=== PATIENT | male | born 1960 | race Caucasian/White ===

== ENCOUNTER 2022-09-30 08:31 | Day surgery (SDC) | payer OTHER, SELFPAY ==
[2022-09-23 07:48] VITALS: BMI 27.9
--- NOTE | 2022-09-27 16:19 | PM.HPGS ---
History of Present Illness History of Present Illness Consent: Risks, benefits, and alternatives have been discussed and questions answered. Patient agrees to proceed with procedure. Chief complaint: Neoplasm Screening and History of Polyps Narrative: Donis Charles is a 62 year old male Referred for colon cancer screening. He had a serrated adenoma removed when he had colonoscopy 8 years ago. Review of Systems Review of Systems: All systems reviewed & are unremarkable except as noted in HPI and below PMFSH Past Medical History Medical History Bronchitis Cervicalgia Hyperlipidemia Polyp of colon Strain of fascia of neck Family History Family History Father Hypertension Hyperlipemia Mother Aneurysm Social History Social History Smoking status: Never smoker (uses smokeless tobacco) Smokeless tobacco user: chewing tobacco Alcohol intake: never Drinks per week: 6 Alcohol use details: have not drank any beer in 4 months. Substance use: never Substance use type: does not use Lack of Transportation: No Lack of Food: Never True Current Housing: I Have Housing Concerned About Future Housing: No Difficulty Paying Gas/Electric Bills: No Difficulty Paying for Meds: No Currently Unemployed: No Education: Trade/Vocational Certificate Difficulty w/ Childcare or Family Care: No Living arrangements: with family Occupation/Education: occupation Gender identity (if verbalized by the patient): Male Sexual Orientation (if Verbalized by the Patient): Straight or Heterosexual Spiritual care concerns: No Agree to blood products: Yes Meds Home Medications and Allergies Home Medications Medication Instructions Recorded Confirmed Type atorvastatin 40 mg tablet 40 mg PO DAILY #90 tabs 08/06/22 09/30/22 Rx Allergies Allergy/AdvReac Type Severity Reaction Status Date / Time No Known Allergies Allergy Unknown Verified 09/30/22 09:19 Exam Const: General: alert Orientation/consciousness: patient oriented x3 Resp: Auscultation: clear to auscultation bilaterally Cardio: Rhythm: regular rhythm GI: GI Palp: Yes Soft to palpation and No Tenderness to palpation present (GI) Neuro: General: patient oriented x3 Assessment and Plan Assessment and plan (1) Colon cancer screening: Code(s): Z12.11 - Encounter for screening for malignant neoplasm of colon Status: Acute Assessment and Plan: Colonoscopy with possible biopsy or polypectomy or cautery or injection of substances.
--- NOTE | 2022-09-30 07:44 | P.PNAN_ITS ---
Anes - Initial Pre Proc Eval Procedure: Operation Date: 09/30/22 10:30 Proposed Procedures p Screening Colonoscopy - Ruben Garnett MD Date/Time: 09/30/22 07:44 Surgeon: Ruben Garnett MD Pre Op Diagnosis: Neoplasm Screening and History of Polyps Patient Data Age: 62 Gender: M Height: 1.7 m Weight: 81 kg Allergies Allergy/AdvReac Type Severity Reaction Status Date / Time No Known Allergies Allergy Unknown Verified 09/30/22 09:19 Home Medications Medication Instructions Recorded Confirmed Type atorvastatin 40 mg tablet 40 mg PO DAILY #90 tabs 08/06/22 09/30/22 Rx Patient hx anesthesia problems: none Family hx anesthesia problems: none Results Review: All pre-operative results and documents have been reviewed as part of the pre- operative evaluation. [facility] Past Medical History Medical History (Updated 09/30/22 @ 07:44 by Fausto Justin DO) Bronchitis Cervicalgia Hyperlipidemia Polyp of colon Strain of fascia of neck Family History Family History Father Hypertension Hyperlipemia Mother Aneurysm Social History Social History (Updated 08/06/22 @ 09:15 by Gabby Guevara MA) Smoking status: Never smoker (uses smokeless tobacco) Smokeless tobacco user: chewing tobacco Alcohol intake: never Drinks per week: 6 Alcohol use details: have not drank any beer in 4 months. Substance use: never Substance use type: does not use Lack of Transportation: No Lack of Food: Never True Current Housing: I Have Housing Concerned About Future Housing: No Difficulty Paying Gas/Electric Bills: No Difficulty Paying for Meds: No Currently Unemployed: No Education: Trade/Vocational Certificate Difficulty w/ Childcare or Family Care: No Living arrangements: with family Occupation/Education: occupation Gender identity (if verbalized by the patient): Male Sexual Orientation (if Verbalized by the Patient): Straight or Heterosexual Spiritual care concerns: No Agree to blood products: Yes Anes - Eval Final PreProcedure Day of Procedure 09/30/22 07:44 Patient weight: overweight Heart: regular rate and rhythm Lungs: clear to auscultation Airway: Mallampati scale class II Neurological: alert and oriented Last oral intake: >/= 8 hours ASA classification: II Emergent: no Anesthetic plan: proceed Anesthesia type and monitoring: general GIVS and standard monitoring Results Review: All pre-operative results and documents have been reviewed as part of the pre- operative evaluation. Informed Consent: The patient's anesthetic plan and its attendant risks and benefits were discussed with the patient/family/POA. Questions were solicited and answers provided to the satisfaction of the patient/family/POA.
[2022-09-30 09:22] VITALS: BP 128/77; PULSE 86; RESP 20; TEMP 36.9; O2SAT 100
[2022-09-30] MEDS: LACTATED RINGERS 1,000 ML 150 ML IV CONT (09:32)
[2022-09-30 10:36] VITALS: BP 98/68; PULSE 65; RESP 18; O2SAT 99
[2022-09-30 10:46] VITALS: BP 112/82; PULSE 63; RESP 17; O2SAT 100
[2022-09-30 10:56] VITALS: BP 128/78; PULSE 61; RESP 17; O2SAT 100
--- NOTE | 2022-09-30 12:06 | WPDANESPN ---
Anes - Prog Note Post-Op Date/Time: 09/30/22 12:06 Cardiovascular status: normal Respiratory status: normal Airway patency: baseline Mental status: baseline Post-Op hydration status: normal Vital Signs: Last Vital Signs Temp 36.9 C 09/30/22 09:22 Pulse 61 09/30/22 10:56 Resp 17 09/30/22 10:56 BP 128/78 09/30/22 10:56 Pulse Ox 100 09/30/22 10:56 O2 Del Method Room Air 09/30/22 10:56 Pain Score (VAS): 0 I/O: Intake & Output 09/29/22 09/30/22 09/30/22 23:59 07:59 15:59 Intake Total 400 Balance 400 Post-procedural complaints: none Patient Feedback: Patient satisfied with anesthetic care. Other Findings: Patient vital signs back to baseline. Patient denies nausea and vomiting. Patient's pain under control. Patient OK for discharge.
== END 2022-09-30 11:15 | disposition home or self-care (01) ==
PROVIDERS: PCP Family Medicine; Visit Provider Internal Medicine Gastroenterology
PROC: 0DJD8ZZ Inspection of Lower Intestinal Tract, Via Natural or Artificial Opening Endoscopic (ICD-10-PCS; CPT 45378; principal; 2022-09-30 10:30)
DX: Z12.11 Encounter for screening for malignant neoplasm of colon (principal)
CPT/HCPCS: 45378

== ENCOUNTER 2024-11-25 16:05 | Emergency (ER) | payer OTHER, SELFPAY ==
[2024-11-25 16:18] VITALS: BP 151/86; PULSE 80; RESP 16; TEMP 37.1; O2SAT 99
--- NOTE | 2024-11-25 16:27 | ED_ITS ---
HPI - Male Genitourinary General Chief complaint: Urogenital-Male Stated complaint: BLOOD IN URINE/BACK PAIN Time Seen by Provider: 11/25/24 16:26 Source: patient Mode of arrival: ambulatory Limitations: no limitations History of Present Illness HPI Narrative: Patient presents to clinic for right flank pain and blood in his urine since 1130am. Currently rating his pain at a 6/10. He has not been taking any [id number] medications. Related Data Allergies Allergy/AdvReac Type Severity Reaction Status Date / Time No Known Allergies Allergy Unknown Verified 11/25/24 17:33 Review of Systems Review of Systems: CONSTITUTIONAL: Denies body aches, fever, chills, or sweats. EYES: Denies visual changes, redness, or discharge. ENT: Denies rhinorrhea, congestion, sore throat, or otalgia. CARDIOVASCULAR: Denies chest pain, palpitations, or edema. RESPIRATORY: Denies cough or dyspnea. GASTROINTESTINAL: Denies abdominal pain, nausea, vomiting, or diarrhea. GENITOURINARY: Reports blood in his urine. SKIN: Denies rash, itching, or wounds. MUSCULOSKELETAL: Denies back pain, joint pain, or myalgia. Reports Right flank pain. NEUROLOGIC: Denies headache, numbness, tingling, or weakness. PSYCH: ?Denies depression or anxiety. All systems reviewed & are unremarkable except as noted in HPI and below PMFSH Past Medical History Medical History Hyperlipidemia Bronchitis Cervicalgia Polyp of colon Strain of fascia of neck Family History Family History Father Hypertension Hyperlipemia Mother Aneurysm Social History Social History Smoking status: Never smoker (uses smokeless tobacco) Smokeless tobacco user: chewing tobacco Alcohol intake: never Drinks per week: 6 Alcohol use details: have not drank any beer in 4 months. Substance use: never Substance use type: does not use Lack of Transportation: No Lack of Food: Never True Current Housing: I Have Housing Concerned About Future Housing: No Difficulty Paying Gas/Electric Bills: No Difficulty Paying for Meds: No Currently Unemployed: No Education: Trade/Vocational Certificate Difficulty w/ Childcare or Family Care: No Living arrangements: with family Occupation/Education: occupation Gender identity (if verbalized by the patient): Male Sexual Orientation (if Verbalized by the Patient): Straight or Heterosexual Spiritual care concerns: No Agree to blood products: Yes Comments At time of signature, I have reviewed and agree with nursing past medical, surgical, social and family history unless otherwise noted. Please see nursing chart for further information. There is no relevant family history pertinent to the presenting complaint. Exam Narrative: GENERAL: Well-appearing, well-nourished, and in no acute distress. HEAD: Normocephalic, atraumatic. EYES: EOMI. ?No redness or drainage. Conjunctivae normal. ENT: Mucous membranes pink and moist. ?No rhinorrhea. ?TMs normal bilaterally. ?Throat normal. Uvula midline. NECK: Normal AROM. ?Supple. ?No lymphadenopathy. CHEST: ?No respiratory distress. Clear to auscultation. HEART: Regular rate and rhythm. No murmur appreciated. Normal peripheral pulses. ABDOMEN: Soft, nontender, nondistended, normal active bowel sounds. MUSCULOSKELETAL: ?Right CVA tenderness noted. EXTREMITIES: Normal range of motion. No edema. SKIN: Warm, dry, no rash. Capillary refill normal. ?Normal skin turgor. NEURO: No focal deficits. Alert and oriented x3. Gait steady. PSYCH: ?Normal affect. ?No signs of depression or anxiety. Course Course Level of Care: Express Care Visit Vital Signs Vital signs: Vital Signs Temperature 98.8 F 11/25/24 16:18 Pulse Rate 80 11/25/24 16:18 Respiratory Rate 16 11/25/24 16:18 Blood Pressure 151/86 H 11/25/24 16:18 Pulse Oximetry 99 11/25/24 16:18 Oxygen Delivery Room Air 11/25/24 16:18 Temperature 98.8 F 11/25/24 16:18 Pulse Rate 80 11/25/24 16:18 Respiratory Rate 16 11/25/24 16:18 Blood Pressure 151/86 H 11/25/24 16:18 Pulse Oximetry 99 11/25/24 16:18 Oxygen Delivery Room Air 11/25/24 16:18 Reviewed Transfer Transfered to: Rick Transfer rationale: Right flank pain, blood in urine. Accepting physician: Franchesca Tillman APRN Transfer comments: Pt is agreeable to transfer. Requests transfer to [facility] via private vehicle. Risks of transportation reviewed with pt including injury, worsening of condition and . Report called to [facility], spoke with Franchesca Tillman APRN, accepting physician. Pt is in stable condition at time of transfer. Advised to remain NPO and go directly to the hospital. MDM - Male Genitourinary MDM Narrative Medical decision making narrative: Discussed physical exam findings. Advised patient to transfer to ER for further evaluation of hematuria and flank pain. Patient agreeable to transfer. Report called to Franchesca Tillman APRN. Differential Diagnosis Differential diagnosis: Likely urinary tract infection and other (mass, kidney stone, pyelonephritis, zoster. ) Lab Data Labs: Lab Results 11/25/24 Range/Units 16:29 POC Urine Color Yellow POC Urine Clarity Clear POC Urine pH 5.5 POC Ur Specif [place] 1.005 POC Urine Protein Negative (Negative) POC Ur Glucose (UA) Negative (Negative) POC Urine Ketones Negative (Negative) POC Urine Blood 3+ (Negative) POC Urine Nitrite Negative (Negative) POC Urine Bilirubin Negative (Negative) POC Urine Urobilinogen 0.2 POC U Leukocyte Esteras Negative (Negative) Critical Care Time Critical Care Time Critical Care Time: No Discharge Plan Discharge Clinical Impression: Acute right flank pain Patient Disposition: Acute Care Hospital Condition: Stable Patient Language: Bulgarian Prescriptions: No Action amoxicillin 500 mg capsule 500 mg PO Q8H Qty: 21 1RF metformin [Glucophage XR] 500 mg tablet extended release 24 hr 500 mg PO QPM Qty: 90 3RF Rx Instructions: take with supper atorvastatin 40 mg tablet 40 mg PO DAILY Qty: 90 1RF Follow-up/Referrals: Miquel Schuler MD [Primary Care Provider] - Time of Disposition: 16:56
[2024-11-25 16:32] LABS: EDUAAPPEAR Clear; EDUABILI Negative (Negative); EDUABLOOD 3+ (Negative); EDUACOLOR1 Yellow; EDUAGLUCOSE Negative (Negative); EDUAKETONE Negative (Negative); EDUALEUKO Negative (Negative); EDUANITRATE Negative (Negative); EDUAPH 5.5; EDUAPROTEIN Negative (Negative); EDUASPGRAVITY 1.005; EDUAUROBILI 0.2
== END 2024-11-25 16:58 | disposition short-term general hospital (02) ==
PROVIDERS: PCP Family Medicine
DX: R10.9 Unspecified abdominal pain (principal); E78.5 Hyperlipidemia, unspecified
CPT/HCPCS: 81003; 99212; G0463

== ENCOUNTER 2024-11-25 17:23 | Observation (INO) | payer OTHER, SELFPAY ==
--- NOTE | ~2024-11-25 | CT_ITS ---
CLINICAL INDICATION: Right flank pain COMPARISON: None. TECHNIQUE: Multiple contiguous axial images of the abdomen and pelvis were performed without the admi nistration of intravenous contrast The dose-length product (DLP) was 273.27 mGy-cm. Automated exposure control and iterative reconstruction technique were employed. FINDINGS/OBSERVATIONS: Visualized lower thorax: The bilateral lung bases are clear. The heart is of normal size, without pericardial effusion. Small hiatal hernia is present. Liver: The liver demonstrates homogeneous attenuation and is not enlarged. Gallbladder and biliary system: The gallbladder is only minimally distended, and otherwise unremarkable. Pancreas: Limited evaluation of the pancreas secondary to the lack of intravenous contrast. Spleen: The spleen demonstrates homogeneous attenuation and is not enlarged. Kidneys: The bilateral kidneys are unremarkable, without hydronephrosis or renal calculi. Adrenal glands: Unremarkable. Gastrointestinal tract: Colonic diverticulosis without surrounding inflammatory change. Appendix: The appendix is fluid-filled and dilated measuring 11.3 mm in caliber with surrounding inflammatory c hange, findings consistent with acute appendicitis. These findings are best visualized on axial serie s, images 114 through 138. Vasculature: Trace calcified atherosclerotic disease. . Lymph nodes: No pathologically enlarged or morphologically suspicious lymph nodes within the retroperitoneum or at the root of the mesentery. Sunshine infiltration of the root of the mesentery, a nonspecific finding. Pelvic structures: The bladder is significantly distended, and otherwise unremarkable. The prostate gland is not enlarged. Body wall and musculoskeletal: Small fat-containing umbilical hernia. Age-appropriate degenerative disease within the lumbosacral spine. IMPRESSION: Acute appendicitis, as detailed above. Reviewed, dictated and finalized at location A.
[2024-11-25 17:27] VITALS: BP 153/84; PULSE 72; RESP 14; TEMP 36.9; O2SAT 99
[2024-11-25 17:45] LABS: Basophils Percent Auto 0.4 % (0.2-1.2); Eosinophils Absolute Auto 0.1 K/mm3 (0-0.3); Eosinophils Percent Auto 0.8 % (0-4.4); Hematocrit 44.1 % (42.0-52.0); Hemoglobin 14.5 g/dL (14.0-18.0); Immature Granulocyte Absolute 0.04 K/mm3 (0.00-0.031); Immature Granulocyte Percent A 0.5 % (0-0.5); Lymphocytes Absolute Auto 2.08 K/mm3 (0.9-3.2); Lymphocytes Percent Auto 24.4 % (18.3-44.2); Mean Corpuscular HGB Conc 32.9 g/dl (32-36); Mean Corpuscular Hemoglobin 28.3 pg (26-34); Mean Platelet Volume 8.9 fl (7.4-10.4); Monocytes Absolute Auto 0.8 K/mm3 (0.1-0.6); Monocytes Percent Auto 9.4 % (2.6-8.5); Neutrophils Absolute Auto 5.5 K/mm3 (1.3-6.7); Neutrophils Percent Auto 64.5 % (45.5-73.1); Platelet Count Result 181 k/mm3 (150-375); Red Blood Count 5.13 M/mm3 (4.6-6.20); Red Cell Distribution Width 12.5 % (11.5-14.5); White Blood Count 8.5 K/mm3 (4.5-10.0)
[2024-11-25 17:52] LABS: Add Urine Microscopic? YES; Appearance Urine Clear (Clear); Bacteria Urine None Seen /hpf; Bilirubin Urine Negative (Negative); Blood Urine 2+ (Negative); Color Urine Yellow (Yellow); Glucose Urine UA Negative (Negative); Ketones Urine Negative (Negative); Leukocyte Esterase Ur Negative LEU/UL (Negative); Nitrate Urine Negative (Negative); Non Pathogenic Casts 0-2; Protein Urine Negative (Negative); RBC Urine 0-2 /hpf (0-2); Specific Grav Ur 1.007 (1.001-1.035); Squamous Epithelial Cell Urine None Seen /hpf (Few); Urobilinogen Urine 0.2 mg/dL (<2.0); WBC Urine 0-5 /hpf (0-3); pH Urine 5.5 (5.0-9.0)
[2024-11-25 17:58] LABS: Alanine Aminotransferase 43 U/L (6-50); Albumin Level 4.8 g/dL (3.5-5.1); Alkaline Phosphatase 86 U/L (38-126); Anion Gap 12 mmol/L (4-12); Aspartate Amino Transferase 31 U/L (17-59); Bilirubin,Total 0.6 mg/dL (0.2-1.3); Blood Urea Nitrogen 20 mg/dL (9-20); Calcium 9.5 mg/dL (8.4-10.2); Carbon Dioxide 24 mmol/L (22-30); Chloride 104 mmol/L (98-107); Estimated CRCL calculation 60 ml/min; Estimated Glomerular Filt Rate > 60; Glucose 98 mg/dL (65-110); Sodium 140 mmol/L (137-145)
--- NOTE | 2024-11-25 18:30 | ED_ITS ---
HPI - Male Genitourinary General Chief complaint: Urogenital-Male Stated complaint: Right flank pain/blood in urine. Sent by Time Seen by Provider: 11/25/24 18:22 History of Present Illness HPI Narrative: 64-year-old male with history of hyperlipidemia and type 2 diabetes presents to the emergency department at the request of urgent care for hematuria and right flank pain that started today. Patient states he had an episode of the light blood tinged urine earlier today. States he has not noticed any gross blood since. He went to urgent care had a urinalysis performed which showed hematuria and was symptoms to come to the ED. He states he known history flank pain today, aggravating alleviating factors. Describes the pain as an achy sensation. No injury or trauma. Denies abdominal pain, fever, nausea vomiting dysuria. Is endorsing some urinary frequency. No history of kidney stones. No saddle anesthesia, bowel or bladder incontinence. Related Data Allergies Allergy/AdvReac Type Severity Reaction Status Date / Time No Known Allergies Allergy Unknown Verified 11/25/24 17:33 Review of Systems 2 Review of Systems: All systems reviewed & are unremarkable except as noted in HPI and below PMFSH Past Medical History Medical History Hyperlipidemia Bronchitis Cervicalgia Polyp of colon Strain of fascia of neck Family History Family History Father Hypertension Hyperlipemia Mother Aneurysm Social History Social History Smoking status: Never smoker (uses smokeless tobacco) Smokeless tobacco user: chewing tobacco Alcohol intake: never Drinks per week: 6 Alcohol use details: have not drank any beer in 4 months. Substance use: never Substance use type: does not use Lack of Transportation: No Lack of Food: Never True Current Housing: I Have Housing Concerned About Future Housing: No Difficulty Paying Gas/Electric Bills: No Difficulty Paying for Meds: No Currently Unemployed: No Education: Trade/Vocational Certificate Difficulty w/ Childcare or Family Care: No Living arrangements: with family Occupation/Education: occupation Gender identity (if verbalized by the patient): Male Sexual Orientation (if Verbalized by the Patient): Straight or Heterosexual Spiritual care concerns: No Agree to blood products: Yes Exam 2 Narrative: GENERAL: Well-appearing, well-nourished, and in no acute distress. HEAD: Normocephalic, atraumatic. EYES: EOMI. ENT: Nares clear, no rhinorrhea or epistaxis. Mucous membranes moist. NECK: Supple. BACK: No midline thoracolumbar spinous tenderness, crepitus, step-offs or deformities. CHEST: Clear to auscultation. No respiratory distress. HEART: Regular rate and rhythm. No murmur heard. Normal peripheral pulses. ABDOMEN: Soft, nondistended, normal active bowel sounds. Mild tenderness to the right CVA region and paraspinous muscles. Mild tenderness to the right lower quadrant without rebound, guarding or rigidity EXTREMITIES: Normal range of motion. No edema. SKIN: Warm, dry, no rash. NEURO: No focal deficits. Alert and oriented x3 Course Vital Signs Vital signs: Vital Signs Temperature 98.4 F 11/25/24 17:27 Pulse Rate 72 11/25/24 17:27 Respiratory Rate 14 11/25/24 17:27 Blood Pressure 153/84 H 11/25/24 17:27 Pulse Oximetry 99 11/25/24 17:27 Oxygen Delivery Room Air 11/25/24 17:27 Temperature 98.4 F 11/25/24 17:27 Pulse Rate 69 11/25/24 19:19 Respiratory Rate 19 11/25/24 19:19 Blood Pressure 138/86 11/25/24 19:19 Pulse Oximetry 97 11/25/24 19:19 Oxygen Delivery Room Air 11/25/24 17:27 MDM - Male Genitourinary MDM Narrative Medical decision making narrative: 64-year-old male with history of type 2 diabetes and hyperlipidemia presents to the emergency department for hematuria and right flank pain that started today. Vitals with hypertension which has since improved. Patient is afebrile and nontoxic appearing. Exam significant for the above. CBC without leukocytosis or anemia. Chemistries are unremarkable. UA with 2+ blood, no white blood cells are leuk esterase, no nitrates. CT abdomen pelvis obtained which shows findings concerning for acute appendicitis. Discussed findings with general surgeon, Dr. Corona, who advises clear liquid diet and NPO at midnight, Zosyn and admission to the hospitalist. Discussed with hospitalist, Dr. Ba, who agrees to admission. Patient has declined pain medications in the ED. Lab Data 11/25/24 17:39 11/25/24 17:39 Labs: Lab Results 11/25/24 Range/Units 17:39 WBC 8.5 (4.5-10.0) K/mm3 RBC 5.13 (4.6-6.20) M/mm3 Hgb 14.5 (14.0-18.0) g/dL Hct 44.1 (42.0-52.0) % MCV 86.0 (80-100) fl MCH 28.3 (26-34) pg MCHC 32.9 (32-36) g/dl RDW 12.5 (11.5-14.5) % Plt Count 181 (150-375) k/mm3 MPV 8.9 (7.4-10.4) fl Immature Gran % (Auto) 0.5 (0-0.5) % Neut % (Auto) 64.5 (45.5-73.1) % Lymph % (Auto) 24.4 (18.3-44.2) % [place] % (Auto) 9.4 H (2.6-8.5) % Eos % (Auto) 0.8 (0-4.4) % Baso % (Auto) 0.4 (0.2-1.2) % Lymph # (Auto) 2.08 (0.9-3.2) K/mm3 [place] # (Auto) 0.8 H (0.1-0.6) K/mm3 Eos # (Auto) 0.1 (0-0.3) K/mm3 Baso # (Auto) 0.0 (0.0-0.1) K/mm3 Abs Immat Gran (auto) 0.04 H (0.00-0.031) K/mm3 Absolute Neuts (auto) 5.5 (1.3-6.7) K/mm3 Absolute Nucleated RBC 0.000 (0.0-0.012) K/mm3 Nucleated RBC % 0.0 (0.0-0.2) % Sodium 140 (137-145) mmol/L Potassium 4.0 (3.4-5.0) mmol/L Chloride 104 (98-107) mmol/L Carbon Dioxide 24 (22-30) mmol/L Anion Gap 12 (4-12) mmol/L BUN 20 (9-20) mg/dL Creatinine 1.05 (0.7-1.3) mg/dL Estim Creat Clear Calc 60 ml/min Estimated GFR > 60 (59 - ) Glucose 98 (65-110) mg/dL Calcium 9.5 (8.4-10.2) mg/dL Total Bilirubin 0.6 (0.2-1.3) mg/dL AST 31 (17-59) U/L ALT 43 (6-50) U/L Alkaline Phosphatase 86 (38-126) U/L Total Protein 8.0 (6.3-8.2) g/dL Albumin 4.8 (3.5-5.1) g/dL Urine Color Yellow (Yellow) Urine Appearance Clear (Clear) Urine pH 5.5 (5.0-9.0) Ur Specific [place] 1.007 (1.001-1.035) Urine Protein Negative (Negative) mg/dL Urine Glucose (UA) Negative (Negative) mg/dL Urine Ketones Negative (Negative) mg/dL Ur Blood (Man) 2+ H (Negative) Urine Nitrate Negative (Negative) Urine Bilirubin Negative (Negative) Urine Urobilinogen 0.2 (<2.0) mg/dL Leukocyte Esterase Rfl Negative (Negative) ARSENIO/UL Urine RBC 0-2 (0-2) /hpf Urine WBC 0-5 (0-3) /hpf Ur Squamous Epith Cells None seen (Few) /hpf Urine Bacteria None seen /hpf Urine Casts 0-2 Discharge Plan Discharge Clinical Impression: Acute appendicitis Qualifiers: Acute appendicitis type: unspecified acute appendicitis type Qualified Code(s): K35.80 - Unspecified acute appendicitis Hematuria Qualifiers: Hematuria type: unspecified type Qualified Code(s): R31.9 - Hematuria, unspecified Patient Disposition: Still a Patient Condition: Stable Patient Language: [place] Prescriptions: No Action amoxicillin 500 mg capsule 500 mg PO Q8H Qty: 21 1RF metformin [Glucophage XR] 500 mg tablet extended release 24 hr 500 mg PO QPM Qty: 90 3RF Rx Instructions: take with supper atorvastatin 40 mg tablet 40 mg PO DAILY Qty: 90 1RF Follow-up/Referrals: Miquel Schuler MD [Primary Care Provider] -
[2024-11-25 18:59] VITALS: BP 141/73; PULSE 67; RESP 14; O2SAT 97
[2024-11-25 19:19] VITALS: BP 138/86; PULSE 69; RESP 19; O2SAT 97
[2024-11-25 20:59] VITALS: BP 132/83; PULSE 74; RESP 15; O2SAT 99
[2024-11-25 21:12] VITALS: BP 132/83; PULSE 74; RESP 15; O2SAT 99
[2024-11-25 21:15] VITALS: BMI 28.7
--- NOTE | 2024-11-25 21:16 | ADMGEN ---
This patient, Donis Thakur, was admitted to 2 Medical Room 242-. Patient/family oriented to hospital policies and general routines including ID bracelet, bed and alarms, visiting hours, pain management, procedures, bathroom and other care routines, personal items, smoking policy, room service/diet, and visiting hours. Information on how to activate the Rapid Response Team has been discussed. Patient/Family are encouraged to report perceived risks to care and to ask questions if they do not understand what they are told or what they should do.
[2024-11-25] MEDS: PIPERACILLN/TAZ 3.375GM/NS50ML 3.375 GM/50 ML BAG IVPB (21:20)
[2024-11-25] MEDS: SODIUM CHLORIDE 0.9% IV 1,000 ML 125 ML IV CONT (21:22)
[2024-11-25 21:34] VITALS: BP 147/67; PULSE 63; RESP 20; TEMP 36.3; O2SAT 97
--- NOTE | 2024-11-25 21:39 | PM.IMHP ---
H&P: HPI History of Present Illness Date/Time: 11/25/24 21:39 Chief Complaint: Right lower back pain Narrative: This is a 64-year-old male with history of dyslipidemia, gcz-palnosa-lngdmfjpu diabetes mellitus who [facility] with a complaint of transient hematuria and right lower back to right flank pain which started on the day of admission 11/25/2024. He describes the pain as an achy sensation. Was sent [facility] at the request of [facility] for further evaluation. UA demonstrated 2+ blood. CT abdomen pelvis without contrast demonstrated fluid-filled appendix, dilated measuring 11.3 mm in caliber with surrounding inflammatory change consistent with acute appendicitis. Administered 3.375 g Zosyn IV x1 and started on normal saline infusion Review of Systems Review of Systems: All systems reviewed & are unremarkable except as noted in HPI and below (HPI) [facility] Past Medical History Medical History Hyperlipidemia Bronchitis Cervicalgia Polyp of colon Strain of fascia of neck Family History Family History Father Hypertension Hyperlipemia Mother Aneurysm Social History Social History Smoking status: Never smoker (uses smokeless tobacco) Smokeless tobacco user: chewing tobacco Alcohol intake: never Drinks per week: 6 Alcohol use details: have not drank any beer in 4 months. Substance use: never Substance use type: does not use Lack of Transportation: No Lack of Food: Never True Current Housing: I Have Housing Concerned About Future Housing: No Difficulty Paying Gas/Electric Bills: No Difficulty Paying for Meds: No Currently Unemployed: No Education: Trade/Vocational Certificate Difficulty w/ Childcare or Family Care: No Living arrangements: with family Occupation/Education: occupation Gender identity (if verbalized by the patient): Male Sexual Orientation (if Verbalized by the Patient): Straight or Heterosexual Spiritual care concerns: No Agree to blood products: Yes Meds Home Medications and Allergies Home Medications ?Medication ?Instructions ?Recorded ?Confirmed ?Type atorvastatin 40 mg tablet 40 mg PO DAILY #90 tabs 07/19/24 11/25/24 Rx metformin 500 mg tablet,extended 500 mg PO QPM #90 tabs 09/10/24 11/25/24 Rx release 24 hr (Glucophage XR) Allergies Allergy/AdvReac Type Severity Reaction Status Date / Time No Known Allergies Allergy Unknown Verified 11/25/24 17:33 Vital Signs Vital Signs - 24 hr 11/25/24 17:27 11/25/24 18:59 11/25/24 19:19 Temperature 98.4 F Pulse Rate 72 67 69 Respiratory Rate 14 14 19 Blood Pressure 153/84 H 141/73 H 138/86 Pulse Oximetry 99 97 97 Oxygen Delivery Room Air 11/25/24 20:59 11/25/24 21:12 11/25/24 21:34 Temperature 97.3 F L Pulse Rate 74 74 63 Respiratory Rate 15 15 20 Blood Pressure 132/83 132/83 147/67 H Pulse Oximetry 99 99 97 Oxygen Delivery Exam Const: General: comfortable and no acute distress Other: A&O x3 HENMT: Mouth: Yes moist mucous membranes Eyes: Pupils: Equal, round and reactive pupils present Neck: Neck: supple Resp: Effort & Inspection: normal respiratory effort Auscultation: clear to auscultation bilaterally Cardio: Rate: regular rate Rhythm: regular rhythm Heart sounds: no gallops, no murmurs and no rubs GI: Inspection: non-distended GI Palp: Yes Soft to palpation and No Tenderness to palpation present (GI) Auscultation: normal bowel sounds : General: Yes bladder normal to palpation Neuro: Motor exam (neuro): 5/5 motor strength present throughout Sensory Exam: normal sensation Extrem: General: no edema H&P: Results Labs Labs: Short CBC 11/25/24 Range/Units 17:39 WBC 8.5 (4.5-10.0) K/mm3 Hgb 14.5 (14.0-18.0) g/dL Hct 44.1 (42.0-52.0) % Plt Count 181 (150-375) k/mm3 BMP 11/25/24 17:39 Sodium 140 Potassium 4.0 Chloride 104 Carbon Dioxide 24 BUN 20 Creatinine 1.05 Glucose 98 Calcium 9.5 Liver Function 11/25/24 Range/Units 17:39 Total Bilirubin 0.6 (0.2-1.3) mg/dL AST 31 (17-59) U/L ALT 43 (6-50) U/L Alkaline Phosphatase 86 (38-126) U/L Albumin 4.8 (3.5-5.1) g/dL Urine 11/25/24 Range/Units 17:39 Urine Color Yellow (Yellow) Urine Appearance Clear (Clear) Urine pH 5.5 (5.0-9.0) Ur Specific [place] 1.007 (1.001-1.035) Urine Protein Negative (Negative) mg/dL Urine Glucose (UA) Negative (Negative) mg/dL Assessment and Plan Assessment and plan (1) Hyperlipidemia: Code(s): E78.5 - Hyperlipidemia, unspecified Status: Acute (2) Diabetes mellitus, type 2: Code(s): E11.9 - Type 2 diabetes mellitus without complications Status: Acute (3) Acute appendicitis: Qualifiers: Acute appendicitis type: unspecified acute appendicitis type Qualified Code(s): K35.80 - Unspecified acute appendicitis Code(s): K35.80 - Unspecified acute appendicitis Status: Acute (4) Hematuria: Qualifiers: Hematuria type: unspecified type Qualified Code(s): R31.9 - Hematuria, unspecified Code(s): R31.9 - Hematuria, unspecified Status: Acute Plan This is a 64-year-old male with history of dyslipidemia, oda-hchnkle-ddtoajvqy diabetes mellitus who presented to in [facility] with a complaint of transient hematuria and right lower back to right flank pain which started on the day of admission 11/25/2024. He describes the pain as an achy sensation. Was sent [facility] at the request of [facility] for further evaluation. UA demonstrated 2+ blood. CT abdomen pelvis without contrast demonstrated fluid-filled appendix, dilated measuring 11.3 mm in caliber with surrounding inflammatory change consistent with acute appendicitis. Administered 3.375 g Zosyn IV x1 and started on normal saline infusion ----- General surgery contacted from ER. Good diet for now and NPO midnight. Morphine p.r.n. for pain. Continue Zosyn. Continue sodium chloride at 125 cc/hour. Monitor hematuria. ----- SCDs. Full code. NPO midnight. Hospitalist MIPS Advance Care Plan I have confirmed that the patient's Advanced Care Plan is present, code status is documented, or surrogate decision maker is listed in patient medical record.: Yes Medication Reconciliation I have utilized all available resources to obtain, update and review the patients current medications (includes all prescriptions, OTC, herbals, cannabis, and nutritional supplements).: Yes
[2024-11-25 23:19] LABS: Glucose Point of Care 127 mg/dl (65-105)
[2024-11-26] MEDS: PIPERACILLN/TAZ 3.375GM/NS50ML 3.375 GM/50 ML BAG IVPB ×3 (01:47→12:08)
[2024-11-26 05:17] LABS: Basophils Percent Auto 0.4 % (0.2-1.2); Eosinophils Absolute Auto 0.1 K/mm3 (0-0.3); Eosinophils Percent Auto 1.1 % (0-4.4); Hemoglobin 14.3 g/dL (14.0-18.0); Immature Granulocyte Absolute 0.05 K/mm3 (0.00-0.031); Immature Granulocyte Percent A 0.7 % (0-0.5); Lymphocytes Percent Auto 18.5 % (18.3-44.2); Mean Corpuscular HGB Conc 33.3 g/dl (32-36); Mean Corpuscular Hemoglobin 28.4 pg (26-34); Mean Corpuscular Volume 85.5 fl (80-100); Mean Platelet Volume 9.3 fl (7.4-10.4); Monocytes Absolute Auto 0.7 K/mm3 (0.1-0.6); Monocytes Percent Auto 8.7 % (2.6-8.5); Neutrophils Absolute Auto 5.3 K/mm3 (1.3-6.7); Neutrophils Percent Auto 70.6 % (45.5-73.1); Platelet Count Result 173 k/mm3 (150-375); Red Blood Count 5.03 M/mm3 (4.6-6.20); Red Cell Distribution Width 12.5 % (11.5-14.5); White Blood Count 7.6 K/mm3 (4.5-10.0)
[2024-11-26 05:27] LABS: Prothrombin Time 13.8 Seconds (11.1-14.7)
[2024-11-26 05:28] LABS: Anion Gap 7 mmol/L (4-12); Blood Urea Nitrogen 16 mg/dL (9-20); Carbon Dioxide 24 mmol/L (22-30); Chloride 109 mmol/L (98-107); Estimated CRCL calculation 61 ml/min; Estimated Glomerular Filt Rate > 60; Glucose 120 mg/dL (65-110); Magnesium 2.2 mg/dL (1.6-2.3); Sodium 140 mmol/L (137-145)
[2024-11-26 05:34] VITALS: BP 149/76; PULSE 65; RESP 20; TEMP 36.3; O2SAT 100
[2024-11-26 05:39] LABS: Glucose Point of Care 110 mg/dl (65-105)
[2024-11-26] MEDS: SODIUM CHLORIDE 0.9% IV 1,000 ML 125 ML IV CONT (06:30)
--- NOTE | 2024-11-26 07:17 | P.PNIM_ITS ---
Progress Note: A&P Assessment and Plan (1) Hyperlipidemia: Code(s): E78.5 - Hyperlipidemia, unspecified Status: Acute Assessment and Plan: Cont Atorvastatin (2) Diabetes mellitus, type 2: Code(s): E11.9 - Type 2 diabetes mellitus without complications Status: Acute Assessment and Plan: Accucheck SSI Hypoglycemia protocol (3) Acute appendicitis: Qualifiers: Acute appendicitis type: unspecified acute appendicitis type Qualified Code(s): K35.80 - Unspecified acute appendicitis Code(s): K35.80 - Unspecified acute appendicitis Status: Acute Assessment and Plan: CT scan abd/pelvis:The appendix is fluid-filled and dilated measuring 11.3 mm in caliber with surrounding inflammatory change, findings consistent with acute appendicitis. Cont Zosyn IVF Monitor vitals Monitor cultures MRSA pending Surgery consulted (4) Hematuria: Qualifiers: Hematuria type: unspecified type Qualified Code(s): R31.9 - Hematuria, unspecified Code(s): R31.9 - Hematuria, unspecified Status: Acute Subjective Date/time seen: 11/26/24 07:17 Interval history: 64-year-old male with history of dyslipidemia, bzu-fipuyza-ozxxfeejo diabetes mellitus who presented to in [facility] with a complaint of transient hematuria and right lower back to right flank pain which started on the day of admission 11/25/2024. He describes the pain as an achy sensation. Was sent [facility] at the request of [facility] for further evaluation. UA demonstrated 2+ blood. CT abdomen pelvis without contrast demonstrated fluid- filled appendix, dilated measuring 11.3 mm in caliber with surrounding inflammatory change consistent with acute appendicitis. Administered 3.375 g Zosyn IV x1 and started on normal saline infusion Review of Systems Review of Systems: All systems reviewed & are unremarkable except as noted in HPI and below (HPI) Exam Const: General: comfortable and no acute distress Other: A&O x3 HENMT: Mouth: Yes moist mucous membranes Eyes: Pupils: Equal, round and reactive pupils present Neck: Neck: supple Resp: Effort & Inspection: normal respiratory effort Auscultation: clear to auscultation bilaterally Cardio: Rate: regular rate Rhythm: regular rhythm Heart sounds: no gallops, no murmurs and no rubs GI: Inspection: non-distended Auscultation: normal bowel sounds : General: Yes bladder normal to palpation Neuro: Cranial nerves: Yes Equal, round and reactive pupils present Motor exam (neuro): 5/5 motor strength present throughout Sensory Exam: normal sensation Extrem: General: no edema Objective Data Vital Signs Vital Signs: Vital Signs - 24 hr 11/25/24 17:27 11/25/24 18:59 11/25/24 19:19 Temperature 98.4 F Pulse Rate 72 67 69 Respiratory Rate 14 14 19 Blood Pressure 153/84 H 141/73 H 138/86 Pulse Oximetry 99 97 97 Oxygen Delivery Room Air 11/25/24 20:59 11/25/24 21:12 11/25/24 21:34 Temperature 97.3 F L Pulse Rate 74 74 63 Respiratory Rate 15 15 20 Blood Pressure 132/83 132/83 147/67 H Pulse Oximetry 99 99 97 Oxygen Delivery 11/26/24 05:34 Temperature 97.4 F L Pulse Rate 65 Respiratory Rate 20 Blood Pressure 149/76 H Pulse Oximetry 100 Oxygen Delivery Intake/Output Intake/Output: Intake & Output 11/23/24 11/24/24 11/25/24 11/26/24 23:59 23:59 23:59 23:59 Intake Total 1250 Output Total 1050 Balance 200 Meds/Results Medications: Active Medications Generic Name Dose Route Start Last Admin Trade Name Freq PRN Reason Stop Dose Admin Atorvastatin Calcium 40 mg 11/26/24 09:00 Atorvastatin 40 Mg Tablet PO DAILY BRUNA Dextrose 12.5 gm 11/25/24 21:38 Dextrose 50% 25 Gm/50 Ml Syringe IV PUSH PRN PRN Hypoglycemia Protocol Glucose 15 gm 11/25/24 21:38 Glucose Oral Gel 15 Gm Of Glucse In 37.5 Gm Tube PO PRN PRN Hypoglycemia Protocol Piperacillin/Tazobactam/Dextrose 3.375 gm in 50 mls @ 100 mls/hr 11/26/24 02:00 11/26/24 06:29 Zosyn 3.375 Gm/Ns 50 Ml IVPB 100 mls/hr Q6HR BRUNA Administration Sodium Chloride 1,000 mls @ 125 mls/hr 11/25/24 20:30 11/26/24 06:30 Normal Saline Iv IV CONT 125 mls/hr .Q8H BRUNA Administration Dextrose 1,000 mls @ 100 mls/hr 11/25/24 21:38 Dextrose 5% 1,000 Ml IVPB PRN PRN Hypoglycemia Protocol Morphine Sulfate 4 mg 11/25/24 20:29 Morphine Sulfate (*Crx) 4 Mg/Ml Inj IV PUSH Q2H PRN Pain Rated 7-10 Ondansetron HCl 4 mg 11/25/24 20:29 Ondansetron Inj 4 Mg/2 Ml Vial IV PUSH Q4H PRN Nausea Radiology Results: ITS Impressions Abdomen/Pelvis CT 11/25/24 19:25 IMPRESSION: Acute appendicitis, as detailed above. Labs Labs: Laboratory Results - last 24 hr 11/25/24 11/25/24 11/25/24 17:39 20:27 23:14 WBC 8.5 RBC 5.13 Hgb 14.5 Hct 44.1 MCV 86.0 MCH 28.3 MCHC 32.9 RDW 12.5 Plt Count 181 MPV 8.9 Immature Gran % (Auto) 0.5 Neut % (Auto) 64.5 Lymph % (Auto) 24.4 [place] % (Auto) 9.4 H Eos % (Auto) 0.8 Baso % (Auto) 0.4 Lymph # (Auto) 2.08 [place] # (Auto) 0.8 H Eos # (Auto) 0.1 Baso # (Auto) 0.0 Abs Immat Gran (auto) 0.04 H Absolute Neuts (auto) 5.5 Absolute Nucleated RBC 0.000 Nucleated RBC % 0.0 PT INR Sodium 140 Potassium 4.0 Chloride 104 Carbon Dioxide 24 Anion Gap 12 BUN 20 Creatinine 1.05 Estim Creat Clear Calc 60 Estimated GFR > 60 Glucose 98 POC Capillary Glucose 127 H Lactic Acid 1.0 Calcium 9.5 Magnesium Total Bilirubin 0.6 AST 31 ALT 43 Alkaline Phosphatase 86 Total Protein 8.0 Albumin 4.8 Urine Color Yellow Urine Appearance Clear Urine pH 5.5 Ur Specific [place] 1.007 Urine Protein Negative Urine Glucose (UA) Negative Urine Ketones Negative Ur Blood (Man) 2+ H Urine Nitrate Negative Urine Bilirubin Negative Urine Urobilinogen 0.2 Leukocyte Esterase Rfl Negative Urine RBC 0-2 Urine WBC 0-5 Ur Squamous Epith Cells None seen Urine Bacteria None seen Urine Casts 0-2 11/26/24 11/26/24 04:41 05:28 WBC 7.6 RBC 5.03 Hgb 14.3 Hct 43.0 MCV 85.5 MCH 28.4 MCHC 33.3 RDW 12.5 Plt Count 173 MPV 9.3 Immature Gran % (Auto) 0.7 H Neut % (Auto) 70.6 Lymph % (Auto) 18.5 [place] % (Auto) 8.7 H Eos % (Auto) 1.1 Baso % (Auto) 0.4 Lymph # (Auto) 1.40 [place] # (Auto) 0.7 H Eos # (Auto) 0.1 Baso # (Auto) 0.0 Abs Immat Gran (auto) 0.05 H Absolute Neuts (auto) 5.3 Absolute Nucleated RBC 0.000 Nucleated RBC % 0.0 PT 13.8 INR 1.0 Sodium 140 Potassium 4.0 Chloride 109 H Carbon Dioxide 24 Anion Gap 7 BUN 16 Creatinine 1.04 Estim Creat Clear Calc 61 Estimated GFR > 60 Glucose 120 H POC Capillary Glucose 110 H Lactic Acid Calcium 9.0 Magnesium 2.2 Total Bilirubin AST ALT Alkaline Phosphatase Total Protein Albumin Urine Color Urine Appearance Urine pH Ur Specific [place] Urine Protein Urine Glucose (UA) Urine Ketones Ur Blood (Man) Urine Nitrate Urine Bilirubin Urine Urobilinogen Leukocyte Esterase Rfl Urine RBC Urine WBC Ur Squamous Epith Cells Urine Bacteria Urine Casts
--- NOTE | 2024-11-26 08:58 | P.CONGS_ITS ---
Assessment and Plan Assessment and plan (1) Acute appendicitis: Qualifiers: Acute appendicitis type: unspecified acute appendicitis type Qualified Code(s): K35.80 - Unspecified acute appendicitis Code(s): K35.80 - Unspecified acute appendicitis Status: Acute Assessment and Plan: Long discussion with patient and regarding conservative management versus surgical management early acute appendicitis, at this point the patient would like to continue with conservative management, will start diet and continue antibiotics, if tolerating diet okay to DC home with p.o. antibiotics for a total duration of 7 days, patient to follow-up with me as outpatient in 2 weeks post discharge History of Present Illness Consult details Consult date: 11/26/24 Reason for consult: abdominal pain Requesting physician: Tone Owens MD Narrative: The patient is a 64-year-old male that presented to the emergency department complaining of right flank pain, transient hematuria. The patient reports the symptoms started yesterday and were transient in nature. The patient reports that the flank pain is intermittent and somewhat achy in nature. The patient was actually seen in urgent care and then told to present to the emergency department. Workup, including imaging, was significant for early acute appendicitis. Review of Systems 2 Review of Systems: All systems reviewed & are unremarkable except as noted in HPI and below PMFSH Past Medical History Medical History Hyperlipidemia Bronchitis Cervicalgia Polyp of colon Strain of fascia of neck Family History Family History Father Hypertension Hyperlipemia Mother Aneurysm Social History Social History Smoking status: Former smoker Smokeless tobacco user: chewing tobacco Alcohol intake: former Drinks per week: 6 Alcohol use details: have not drank any beer in 4 months. Substance use: never Substance use type: does not use Do You Feel Safe in your Home?: Yes Lack of Transportation: No Lack of Food: Never True Current Housing: I Have Housing Concerned About Future Housing: No Difficulty Paying Gas/Electric Bills: No Difficulty Paying for Meds: No Currently Unemployed: No Education: Trade/Vocational Certificate Difficulty w/ Childcare or Family Care: No Living arrangements: with family Occupation/Education: occupation Gender identity (if verbalized by the patient): Male Sexual Orientation (if Verbalized by the Patient): Straight or Heterosexual Spiritual care concerns: No Agree to blood products: Yes Meds Home Medications and Allergies Home Medications ?Medication ?Instructions ?Recorded ?Confirmed ?Type atorvastatin 40 mg tablet 40 mg PO DAILY #90 tabs 07/19/24 11/25/24 Rx metformin 500 mg tablet,extended 500 mg PO QPM #90 tabs 09/10/24 11/25/24 Rx release 24 hr (Glucophage XR) Allergies Allergy/AdvReac Type Severity Reaction Status Date / Time No Known Allergies Allergy Unknown Verified 11/25/24 17:33 Vital Signs Vital Signs - 24 hr 11/25/24 17:27 11/25/24 18:59 11/25/24 19:19 Temperature 36.9 C Pulse Rate 72 67 69 Respiratory Rate 14 14 19 Blood Pressure 153/84 H 141/73 H 138/86 Pulse Oximetry 99 97 97 Oxygen Delivery Room Air 11/25/24 20:59 11/25/24 21:12 11/25/24 21:34 Temperature 36.3 C L Pulse Rate 74 74 63 Respiratory Rate 15 15 20 Blood Pressure 132/83 132/83 147/67 H Pulse Oximetry 99 99 97 Oxygen Delivery 11/26/24 05:34 Temperature 36.3 C L Pulse Rate 65 Respiratory Rate 20 Blood Pressure 149/76 H Pulse Oximetry 100 Oxygen Delivery Exam 2 Const: General: cooperative, comfortable and no acute distress HENMT: Head: normal to inspection, normocephalic and atraumatic Eyes: General: appearance normal, both eyes and all related structures Neck: Neck: normal visual inspection, full ROM and no lymphadenopathy Resp: Auscultation: clear to auscultation bilaterally Cardio: Rate: regular rate Rhythm: regular rhythm GI: Inspection: normal to inspection and non-distended GI Palp: No abdominal tenderness, Yes Soft to palpation, No Tenderness to palpation present (GI), No Guarding due to palpation present (GI) and No Rigid due to palpation Other: mild R flank pain Skin: General skin exam: normal color and no rashes or lesions noted Neuro: General: patient oriented x3 and CN's II-XI intact bilaterally Extrem: General: normal to inspection and full ROM Results Labs 11/26/24 04:41 11/26/24 04:41 Labs: Abnormal lab results 11/25/24 11/25/24 11/26/24 Range/Units 17:39 23:14 04:41 Immature Gran % (Auto) 0.7 H (0-0.5) % [place] % (Auto) 9.4 H 8.7 H (2.6-8.5) % [place] # (Auto) 0.8 H 0.7 H (0.1-0.6) K/mm3 Abs Immat Gran (auto) 0.04 H 0.05 H (0.00-0.031) K/mm3 Chloride 109 H (98-107) mmol/L Glucose 120 H (65-110) mg/dL POC Capillary Glucose 127 H (65-105) mg/dl Ur Blood (Man) 2+ H (Negative) 11/26/24 Range/Units 05:28 Immature Gran % (Auto) (0-0.5) % [place] % (Auto) (2.6-8.5) % [place] # (Auto) (0.1-0.6) K/mm3 Abs Immat Gran (auto) (0.00-0.031) K/mm3 Chloride (98-107) mmol/L Glucose (65-110) mg/dL POC Capillary Glucose 110 H (65-105) mg/dl Ur Blood (Man) (Negative) Diabetes panel 11/25/24 11/26/24 Range/Units 17:39 04:41 Sodium 140 140 (137-145) mmol/L Potassium 4.0 4.0 (3.4-5.0) mmol/L Chloride 104 109 H (98-107) mmol/L Carbon Dioxide 24 24 (22-30) mmol/L BUN 20 16 (9-20) mg/dL Creatinine 1.05 1.04 (0.7-1.3) mg/dL Glucose 98 120 H (65-110) mg/dL Calcium 9.5 9.0 (8.4-10.2) mg/dL AST 31 (17-59) U/L ALT 43 (6-50) U/L Alkaline Phosphatase 86 (38-126) U/L Total Protein 8.0 (6.3-8.2) g/dL Albumin 4.8 (3.5-5.1) g/dL Calcium panel 11/25/24 11/26/24 Range/Units 17:39 04:41 Calcium 9.5 9.0 (8.4-10.2) mg/dL Albumin 4.8 (3.5-5.1) g/dL Pituitary panel 11/25/24 11/26/24 Range/Units 17:39 04:41 Sodium 140 140 (137-145) mmol/L Potassium 4.0 4.0 (3.4-5.0) mmol/L Chloride 104 109 H (98-107) mmol/L Carbon Dioxide 24 24 (22-30) mmol/L BUN 20 16 (9-20) mg/dL Creatinine 1.05 1.04 (0.7-1.3) mg/dL Glucose 98 120 H (65-110) mg/dL Calcium 9.5 9.0 (8.4-10.2) mg/dL Adrenal panel 11/25/24 11/26/24 Range/Units 17:39 04:41 Sodium 140 140 (137-145) mmol/L Potassium 4.0 4.0 (3.4-5.0) mmol/L Chloride 104 109 H (98-107) mmol/L Carbon Dioxide 24 24 (22-30) mmol/L BUN 20 16 (9-20) mg/dL Creatinine 1.05 1.04 (0.7-1.3) mg/dL Glucose 98 120 H (65-110) mg/dL Calcium 9.5 9.0 (8.4-10.2) mg/dL Total Bilirubin 0.6 (0.2-1.3) mg/dL AST 31 (17-59) U/L ALT 43 (6-50) U/L Alkaline Phosphatase 86 (38-126) U/L Total Protein 8.0 (6.3-8.2) g/dL Albumin 4.8 (3.5-5.1) g/dL All other labs normal. Imaging Abdomen CT scan report/results: report reviewed and image reviewed
[2024-11-26 09:23] VITALS: O2SAT 97
[2024-11-26 09:42] LABS: MRSA (PCR) NOT DETECTED (NOT DETECTE)
[2024-11-26 12:05] LABS: Glucose Point of Care 91 mg/dl (65-105)
[2024-11-26 14:00] VITALS: BP 134/73; PULSE 70; RESP 18; TEMP 36.7; O2SAT 100
--- NOTE | 2024-11-26 15:29 | P.DS_ITS ---
DS: Admitting Diagnosis Discharge Date 11/26/2024 Admitting Diagnosis Hematuria and abdominal pain DS: Discharge Diagnosis Discharge Diagnosis (1) Hyperlipidemia: Code(s): E78.5 - Hyperlipidemia, unspecified Status: Acute Assessment and Plan: Cont Atorvastatin (2) Diabetes mellitus, type 2: Code(s): E11.9 - Type 2 diabetes mellitus without complications Status: Acute Assessment and Plan: Accucheck SSI Hypoglycemia protocol (3) Acute appendicitis: Qualifiers: Acute appendicitis type: unspecified acute appendicitis type Qualified Code(s): K35.80 - Unspecified acute appendicitis Code(s): K35.80 - Unspecified acute appendicitis Status: Acute Assessment and Plan: CT scan abd/pelvis:The appendix is fluid-filled and dilated measuring 11.3 mm in caliber with surrounding inflammatory change, findings consistent with acute appendicitis. Cont Zosyn IVF Monitor vitals Monitor cultures MRSA pending Surgery consulted (4) Hematuria: Qualifiers: Hematuria type: unspecified type Qualified Code(s): R31.9 - Hematuria, unspecified Code(s): R31.9 - Hematuria, unspecified Status: Acute DS: Summary Hospital Course Hospital Course: 64-year-old male with history of dyslipidemia, job-mcjvcln-obypjmehz diabetes mellitus who presented to in [facility] with a complaint of transient hematuria and right lower back to right flank pain which started on the day of admission 11/25/2024. He describes the pain as an achy sensation. Was sent [facility] at the request of [facility] for further evaluation. UA demonstrated 2+ blood. CT abdomen pelvis without contrast demonstrated fluid- filled appendix, dilated measuring 11.3 mm in caliber with surrounding inflammatory change consistent with acute appendicitis. Administered 3.375 g Zosyn IV x1 and started on normal saline infusion. Surgery was consulted and evaluated the patient. As per surgeon Long discussion with patient and regarding conservative management versus surgical management early acute appendicitis, at this point the patient would like to continue with conservative management, will start diet and continue antibiotics, if tolerating diet okay to DC home with p.o. antibiotics for a total duration of 7 days, patient to follow-up with me as outpatient in 2 weeks post discharge Patient reports during my evaluation initially he went to urgent care due to hematuria and he was sent to ED. he reports had the diagnosis of acute appendicitis. In regards to hematuria had a long discussion and patient is adamant that he wants to leave home now and will follow up with Urology as an outpatient. He adamantly dismiss any investigation for hematuria during this hospitalization. He agrees to follow-up to see the surgeon and urologist as an outpatient. Patient will be discharged with levofloxacin 750 mg p.o. q.d. for 7 days and follow-up with the surgeon for further plan. Status at Discharge Cognitive/behavioral status at discharge: Guarded Time Spent with Patient Time attestation: Total time spent providing and/or coordinating discharge services: 45 minute Exam Narrative: Const: General: cooperati ve, comfortable an d no acute distres s HENMT: Head: normal to in spection, normocep halic and atraumat ic Eyes: General: appearanc e normal, both eye s and all related structures Neck: Neck: normal visua l inspection, full ROM and no lympha denopathy Resp: Auscultation: stephanie r to auscultation bilaterally Cardio: Rate: regular rate Rhythm: regular rhythm GI: Inspection: normal to inspection and non-distended GI Palp: No abdomina l tenderness, Yes Soft to palpation, No Tenderness to palpation present (GI), No Guarding due to palpation p resent (GI) and No Rigid due to palp ation Other: mi ld R flank pain Skin: General skin exam: normal color and no rashes or lesio ns noted Neuro: General: patient o riented x3 and CN' s II-XI intact cameron aterally Extrem: General: normal to inspection and fu ll ROM DS: Data Data Completed and Pending Labs on day of discharge: Labs from last 24 hours 11/26/24 11/26/24 11/26/24 12:01 08:23 05:28 WBC RBC Hgb Hct MCV MCH MCHC RDW Plt Count MPV Immature Gran % (Auto) Neut % (Auto) Lymph % (Auto) [place] % (Auto) Eos % (Auto) Baso % (Auto) Lymph # (Auto) [place] # (Auto) Eos # (Auto) Baso # (Auto) Abs Immat Gran (auto) Absolute Neuts (auto) Absolute Nucleated RBC Nucleated RBC % PT INR Sodium Potassium Chloride Carbon Dioxide Anion Gap BUN Creatinine Estim Creat Clear Calc Estimated GFR Glucose POC Capillary Glucose 91 110 H Lactic Acid Calcium Magnesium Total Bilirubin AST ALT Alkaline Phosphatase Total Protein Albumin Urine Color Urine Appearance Urine pH Ur Specific [place] Urine Protein Urine Glucose (UA) Urine Ketones Ur Blood (Man) Urine Nitrate Urine Bilirubin Urine Urobilinogen Leukocyte Esterase Rfl Urine RBC Urine WBC Ur Squamous Epith Cells Urine Bacteria Urine Casts Nasal MRSA (PCR) Not detected 11/26/24 11/25/24 11/25/24 04:41 23:14 20:27 WBC 7.6 RBC 5.03 Hgb 14.3 Hct 43.0 MCV 85.5 MCH 28.4 MCHC 33.3 RDW 12.5 Plt Count 173 MPV 9.3 Immature Gran % (Auto) 0.7 H Neut % (Auto) 70.6 Lymph % (Auto) 18.5 [place] % (Auto) 8.7 H Eos % (Auto) 1.1 Baso % (Auto) 0.4 Lymph # (Auto) 1.40 [place] # (Auto) 0.7 H Eos # (Auto) 0.1 Baso # (Auto) 0.0 Abs Immat Gran (auto) 0.05 H Absolute Neuts (auto) 5.3 Absolute Nucleated RBC 0.000 Nucleated RBC % 0.0 PT 13.8 INR 1.0 Sodium 140 Potassium 4.0 Chloride 109 H Carbon Dioxide 24 Anion Gap 7 BUN 16 Creatinine 1.04 Estim Creat Clear Calc 61 Estimated GFR > 60 Glucose 120 H POC Capillary Glucose 127 H Lactic Acid 1.0 Calcium 9.0 Magnesium 2.2 Total Bilirubin AST ALT Alkaline Phosphatase Total Protein Albumin Urine Color Urine Appearance Urine pH Ur Specific [place] Urine Protein Urine Glucose (UA) Urine Ketones Ur Blood (Man) Urine Nitrate Urine Bilirubin Urine Urobilinogen Leukocyte Esterase Rfl Urine RBC Urine WBC Ur Squamous Epith Cells Urine Bacteria Urine Casts Nasal MRSA (PCR) 11/25/24 17:39 WBC 8.5 RBC 5.13 Hgb 14.5 Hct 44.1 MCV 86.0 MCH 28.3 MCHC 32.9 RDW 12.5 Plt Count 181 MPV 8.9 Immature Gran % (Auto) 0.5 Neut % (Auto) 64.5 Lymph % (Auto) 24.4 [place] % (Auto) 9.4 H Eos % (Auto) 0.8 Baso % (Auto) 0.4 Lymph # (Auto) 2.08 [place] # (Auto) 0.8 H Eos # (Auto) 0.1 Baso # (Auto) 0.0 Abs Immat Gran (auto) 0.04 H Absolute Neuts (auto) 5.5 Absolute Nucleated RBC 0.000 Nucleated RBC % 0.0 PT INR Sodium 140 Potassium 4.0 Chloride 104 Carbon Dioxide 24 Anion Gap 12 BUN 20 Creatinine 1.05 Estim Creat Clear Calc 60 Estimated GFR > 60 Glucose 98 POC Capillary Glucose Lactic Acid Calcium 9.5 Magnesium Total Bilirubin 0.6 AST 31 ALT 43 Alkaline Phosphatase 86 Total Protein 8.0 Albumin 4.8 Urine Color Yellow Urine Appearance Clear Urine pH 5.5 Ur Specific [place] 1.007 Urine Protein Negative Urine Glucose (UA) Negative Urine Ketones Negative Ur Blood (Man) 2+ H Urine Nitrate Negative Urine Bilirubin Negative Urine Urobilinogen 0.2 Leukocyte Esterase Rfl Negative Urine RBC 0-2 Urine WBC 0-5 Ur Squamous Epith Cells None seen Urine Bacteria None seen Urine Casts 0-2 Nasal MRSA (PCR) Preliminary micro results at discharge 11/25/24 20:55 Blood Culture - Preliminary Blood 11/25/24 20:27 Blood Culture - Preliminary Blood Discharge Plan Discharge Attending physician on discharge: Korey Lopez Consulting providers: Machelle Corona Discharging Clinician: Korey Lopez Anticipated Discharge Date/Time: 11/26/24 15:23 Patient Disposition: Home Activity: as tolerated Diet: as tolerated Discharge Instructions: Patient needs to follow-up with urology and surgery within a week upon discharge. Check blood pressure 1 to 2 times a day. Record and bring into your doctor for review. Call your doctor if your blood pressure is greater than 180/110 or less than 90/45. Walk with cane or other assist device. Take precautions to avoid falls. Rise slowly from a lying or sitting position. Pause before standing or walking. Contact your doctor or call 911 and come to the Emergency Room if you have any type of trauma, lightheadedness with standing or other worrisome symptoms. Avoid NSAIDs (ibuprofen, naproxen, Aleve). Tylenol is safe to take. Follow-up with your primary care provider in 1-2 weeks. Please call for appointment. Thank you for using [facility] for your health care needs. Patient Instructions: Antibiotic Form Patient Language: Congolese Stand Alone Forms: General Discharge Information Follow-up/Referrals: [facility] [Provider Group] (Hematuria) Machelle Corona MD [Physician] - 2 Weeks Discharge Medications: New levofloxacin 750 mg tablet 750 mg PO DAILY Qty: 7 0RF Continued metformin [Glucophage XR] 500 mg tablet extended release 24 hr 500 mg PO QPM Qty: 90 3RF Rx Instructions: take with supper atorvastatin 40 mg tablet 40 mg PO DAILY Qty: 90 1RF Date of admission: 11/25/24 20:40 Primary Care Provider: Miquel Schuler Admitting Provider: Kaylee Ba Attending physician on admission: Kaylee Ba Condition: Stable
== END 2024-11-26 15:42 | disposition home or self-care (01) ==
LOC: ANHED 19:51 → ANH2MED 11-26 14:10
PROVIDERS: Emergency Medicine; Admitting Provider General Practice; Emergency Provider Physician Assistant; PCP Family Medicine; Visit Provider General Practice
DX: K35.80 Unspecified acute appendicitis (principal); R31.9 Hematuria, unspecified; E11.9 Type 2 diabetes mellitus without complications; E78.5 Hyperlipidemia, unspecified; J40 Bronchitis, not specified as acute or chronic; F17.220 Nicotine dependence, chewing tobacco, uncomplicated; Z79.84 Long term (current) use of oral hypoglycemic drugs; Z79.899 Other long term (current) drug therapy; Z86.0100 Personal history of colon polyps, unspecified
CPT/HCPCS: 36415; 74176; 80048; 80053; 81001; 81003; 82948; 83605; 83735; 85025; 85610; 87040; 87641; 96361; 96365; 96375; 99285; G0378; J2543; J7030

== ENCOUNTER 2024-12-29 09:04 | Outpatient (CLI) | payer OTHER, SELFPAY ==
--- NOTE | 2024-12-29 09:25 | ECG_ITS ---
Test Date: 2024-12-29 09:29:30 Measurements Intervals Rulo Rate: 68 P: 63 NE: 156 QRS: 15 QRSD: 94 T: 65 QT: 362 QTc: 386 Interpretive Statements SINUS RHYTHM WARNING: DATA QUALITY MAY AFFECT INTERPRETATION No previous ECG available for comparison Electronically Signed On 12-30-2024 14:59:34 CDT by Raad Cifuentes M.D.
== END 2024-12-29 09:05 | disposition home or self-care (01) ==
LOC: ANHSURGERY 09:09
PROVIDERS: PCP Family Medicine; Visit Provider Surgery
DX: E78.5 Hyperlipidemia, unspecified (principal)
CPT/HCPCS: 93005

== ENCOUNTER 2025-01-10 02:14 | Day surgery (SDC) | payer OTHER, SELFPAY ==
--- NOTE | 2024-12-20 15:13 | PC.NURSE ---
Report to the Outpatient Waiting Room, entrance under the green pavilion located off [facility], at time __6 AM on date __01/10/25 . Planned Procedure Time: __7:30 AM .? Time changes happen often and if your time is changed the preop area will call you the afternoon before. - You and your visitor will be asked to self-screen and do not enter if you have any COVID symptoms. Please call surgeon if you need to reschedule. - A mask is optional within the hospital at this time. Patients may have clear liquids (water, carbonated beverages, clear teas, apple juice) until 3 hours prior to surgery ( 4:30 AM) with a maximum of 20 ounces. - No food from midnight until time of surgery and no smoking, or chewing tobacco (or any form of nicotine). No chewing gum, candy or mints. Take only the following medications with a SIP of water on the morning of surgery: ____NONE DO NOT STOP ANY OF YOUR OTHER PRESCRIPTION MEDICATIONS PRIOR TO SURGERY EXCEPT THE FOLLOWING Hold all vitamins and supplements for 3 days per anesthesiologist. Medications to discontinue per physician NONE Please no make-up, nail [place], hairspray, perfume, deodorant, or body powder the day of surgery.? No jewelry (including any body piercings) or valuables the day of surgery, leave them at home.? Please take a shower or bath the night before, or the morning of, surgery with an antibacterial soap.? Wear comfortable, loose fitting clothing.? Children are encouraged to wear pajamas. - Jewelry must be removed prior to entering the operating room.? Rings and piercings that are not removed may be cut off. - The hospital will not accept responsibility for valuables.? - Please leave all valuables, including medications, at home the day of surgery. If you are going home after surgery, a licensed delivery route driver must drive you home.? - NO public transportation without another adult if you receive anesthesia. - We recommend that an adult stay with you for 24 hours following discharge. - We also recommend that you do not drive, make important decision, drink alcoholic beverages, or take any drugs that were not prescribed by your health care provider for at least 24 hours after your discharge time. For Pediatric surgeries, we recommend two adults accompany the child home. Follow any additional instructions given to you from your surgeon. Telephone instructions given to __PATIENT and asked if any additional questions and then verbalized understanding. Patient advised to call surgeon office or pre surgery nurse liaison [phone] if any additional questions.
[2024-12-20 15:25] VITALS: BMI 28.1
[2025-01-10] VITALS (8 sets, daily range): BP systolic 102–147; BP diastolic 53–78; PULSE 58–81; RESP 16–20; TEMP 36.3–36.6; O2SAT 98–100
[2025-01-10] MEDS: ACETAMINOPHEN 500 MG TABLET 1000 MG PO (06:30)
[2025-01-10] MEDS: KETOROLAC 15 MG/ML VIAL (*BKC) IV PUSH (06:30)
[2025-01-10] MEDS: LACTATED RINGERS 1,000 ML 30 ML IV CONT (06:30)
--- NOTE | 2025-01-10 06:46 | WPDANESEPPF ---
Anes - Initial Pre Proc Eval Procedure: Operation Date: 01/10/25 07:30 Proposed Procedures p Laparoscopic Appendectomy - Machelle Corona MD Date/Time: 01/10/25 06:46 Surgeon: Machelle Corona MD Pre Op Diagnosis: acute appendicitis Patient Data Age: 64 Gender: M Height: 1.73 m Weight: 83.95 kg Allergies Allergy/AdvReac Type Severity Reaction Status Date / Time No Known Allergies Allergy Unknown Verified 12/20/24 15:09 Home Medications ?Medication ?Instructions ?Recorded ?Confirmed ?Type metformin 500 mg tablet,extended 500 mg PO QPM #90 tabs 09/10/24 12/20/24 Rx release 24 hr (Glucophage XR) levofloxacin 750 mg tablet 750 mg PO DAILY #7 tabs 11/26/24 12/20/24 Rx atorvastatin 40 mg tablet 40 mg PO DAILY #90 tabs 12/30/24 Rx Patient hx anesthesia problems: none Family hx anesthesia problems: none Results Review: All pre-operative results and documents have been reviewed as part of the pre-operative evaluation. [facility] Past Medical History Medical History Hyperlipidemia Bronchitis Cervicalgia Polyp of colon Strain of fascia of neck Family History Family History Father Hypertension Hyperlipemia Mother Aneurysm Social History Social History Smoking packs per day: 1 Smoking cigarettes per day: 20.0 Years smoked: 20 Smoking pack-years: 20.00 Smoking status: Former smoker Tobacco type: cigarettes Smokeless tobacco user: chewing tobacco Smoking end date: 08/04/89 Additional smoking assessment comments: CURRENTLY CHEWS TOBACCO DAILY Alcohol intake: former Drinks per week: 6 Alcohol use details: have not drank any beer in 4 months. Substance use: never Substance use type: does not use Do You Feel Safe in your Home?: Yes Lack of Transportation: No Lack of Food: Never True Current Housing: I Have Housing Concerned About Future Housing: No Difficulty Paying Gas/Electric Bills: No Difficulty Paying for Meds: No Currently Unemployed: No Education: Trade/Vocational Certificate Difficulty w/ Childcare or Family Care: No Living arrangements: with family Occupation/Education: occupation Gender identity (if verbalized by the patient): Male Sexual Orientation (if Verbalized by the Patient): Straight or Heterosexual Spiritual care concerns: No Agree to blood products: Yes Anes - Eval Final PreProcedure Day of Procedure 01/10/25 06:46 Patient weight: overweight Heart: regular rate and rhythm Lungs: clear to auscultation Airway: Mallampati scale class II Neurological: alert and oriented Last oral intake: >/= 8 hours ASA classification: II Emergent: no Anesthetic plan: proceed Anesthesia type and monitoring: general ETT and standard monitoring Results Review: All pre-operative results and documents have been reviewed as part of the pre-operative evaluation. Informed Consent: The patient's anesthetic plan and its attendant risks and benefits were discussed with the patient/family/POA. Questions were solicited and answers provided to the satisfaction of the patient/family/POA.
[2025-01-10 06:54] LABS: Glucose Point of Care 110 mg/dl (65-105)
--- NOTE | 2025-01-10 07:16 | PM.IMHP ---
H&P: HPI History of Present Illness Date/Time: 01/10/25 07:16 Chief Complaint: chronic appendicitis Narrative: The patient is a 59 male initially seen in late November with early acute appendicitis. At that time, the patient was treated conservatively with IV antibiotics. He initially did well with the treatment and was going to continue conservative management. The patient reports over the last couple of weeks he has been having intermittent right lower quadrant abdominal pain. This pain is similar to the pain he had when he was diagnosed with acute appendicitis. Review of Systems Review of Systems: All systems reviewed & are unremarkable except as noted in HPI and below PMFSH Past Medical History Medical History Hyperlipidemia Bronchitis Cervicalgia Polyp of colon Strain of fascia of neck Family History Family History Father Hypertension Hyperlipemia Mother Aneurysm Social History Social History Smoking packs per day: 1 Smoking cigarettes per day: 20.0 Years smoked: 20 Smoking pack-years: 20.00 Smoking status: Former smoker Tobacco type: cigarettes Smokeless tobacco user: chewing tobacco Smoking end date: 08/04/89 Additional smoking assessment comments: CURRENTLY CHEWS TOBACCO DAILY Alcohol intake: former Drinks per week: 6 Alcohol use details: have not drank any beer in 4 months. Substance use: never Substance use type: does not use Do You Feel Safe in your Home?: Yes Lack of Transportation: No Lack of Food: Never True Current Housing: I Have Housing Concerned About Future Housing: No Difficulty Paying Gas/Electric Bills: No Difficulty Paying for Meds: No Currently Unemployed: No Education: Trade/Vocational Certificate Difficulty w/ Childcare or Family Care: No Living arrangements: with family Occupation/Education: occupation Gender identity (if verbalized by the patient): Male Sexual Orientation (if Verbalized by the Patient): Straight or Heterosexual Spiritual care concerns: No Agree to blood products: Yes Meds Home Medications and Allergies Home Medications ?Medication ?Instructions ?Recorded ?Confirmed ?Type metformin 500 mg tablet,extended 500 mg PO QPM #90 tabs 09/10/24 12/20/24 Rx release 24 hr (Glucophage XR) levofloxacin 750 mg tablet 750 mg PO DAILY #7 tabs 11/26/24 12/20/24 Rx atorvastatin 40 mg tablet 40 mg PO DAILY #90 tabs 12/30/24 Rx Allergies Allergy/AdvReac Type Severity Reaction Status Date / Time No Known Allergies Allergy Unknown Verified 12/20/24 15:09 Exam Const: General: cooperative, comfortable and no acute distress Resp: Auscultation: clear to auscultation bilaterally Cardio: Rate: regular rate Rhythm: regular rhythm GI: Inspection: normal to inspection and non-distended GI Palp: No abdominal tenderness, Yes Soft to palpation, No Guarding due to palpation present (GI) and No Rigid due to palpation Skin: General skin exam: normal color and no rashes or lesions noted Neuro: General: patient oriented x3 and CN's II-XI intact bilaterally Extrem: General: normal to inspection and full ROM Assessment and Plan Assessment and plan (1) Acute appendicitis: Qualifiers: Acute appendicitis type: unspecified acute appendicitis type Qualified Code(s): K35.80 - Unspecified acute appendicitis Code(s): K35.80 - Unspecified acute appendicitis Status: Acute Assessment and Plan: Likely more chronic in nature at this point, patient would like to proceed with appendectomy
--- NOTE | 2025-01-10 07:19 | WPDHPUPDATE1 ---
History and Physical Update Update Date/Time: 01/10/25 07:19 History and Physical has been reviewed, including an updated exam of the patient. There are NO changes in the patient's condition. Risks, benefits, and alternatives have been discussed and questions answered. Patient agrees to proceed with procedure.
[2025-01-10] MEDS: ceFAZolin 2 GM/D5W 50 ML 2 GM/50 ML BAG IVPB (07:36)
[2025-01-10] MEDS: metroNIDAZOLE 500 MG/ISO 100ML 500 MG/100 ML BAG 100 MG IVPB (07:41)
[2025-01-10] MEDS: BUPIVACAINE/EPINEPHRINE 0.5% 50 ML VIAL 30 ML INFILTRATE (07:43)
--- NOTE | 2025-01-10 07:57 | S_PTH ---
PATIENT: Donis Montoya LOC: [facility] U#:[id number] AGE/SX: 64/M ROOM: RE01/10/[address]: Machelle Corona MD : 1960 BED: DIS: 01/10/2025 SPEC #: [id number] RECD: 01/10/25 10:16 STATUS: RADHA REQ #: [id number] REINA: 01/10/25 07:[address]: Machelle Corona DEPT: [facility] Surgical RECD BY: Soheila Daily ENTERED: 01/10/25 10:16 SP TYPE: Surgical OTHR DR: Miquel Schuler MD Tissues: A - Appendix Procedures: Hematoxylin and Eosin Stain Gross and Microscopic Level 3
--- NOTE | 2025-01-10 08:18 | P.OP_ITS ---
Procedure Note - Detailed Date of Procedure 01/10/25 Pre-op Diagnosis chronic appendicitis Post-op Diagnosis Same Procedure Performed laparoscopic appendectomy Surgeon Machelle Corona MD Anesthesia General Indications 64-year-old male initially presented with early acute appendicitis treated conservatively in late November. Patient continues to have intermittent right lower quadrant pain and now set up for interval appendectomy. Findings Chronic appendicitis no evidence of perforation Description of Procedure The patient was taken to the operating room and placed in the supine position. After adequate induction of general anesthesia, the patient was prepped and draped in the normal sterile fashion. A time-out was then done to verify the patient's identity, as well as the procedure being performed. I began by making a 5 mm incision in the infraumbilical region, through this a Veress needle was placed in the peritoneal cavity. CO2 gas was then insufflated and after adequate pneumoperitoneum was achieved the Veress needle was removed. Then placed a 5 mm Optiview trocar under direct visualization into the peritoneal cavity. I then insufflated through this trocar site and the endoscope was vannesa sarah into the trocar. Under direct visualization, placed 2 further 5 mm suprapubic port as well as an additional 12 mm port in the left lower abdomen. Of note, an epigastric incision was made in anticipation of further port placement, however this did not end up needing to be used. At this point identified the cecum, I retracted the cecum both medially and superiorly allowing me to expose the appendix. The appendix was noted to be very dilated and inflamed. The appendix was noted to be very adherent to the right lateral sidewall as well as the ileum. I was able to bluntly dissect the appendix from these adhesions. I then was able to locate the base of the appendix with the cecum. I created a window with the [place] dissector between the appendix itself and the mesoappendix. I then transected the mesoappendix with a white vascular staple load. The Endo-DARNELL was then reloaded with a blue staple load and I transected the base of the appendix. Once the specimen was completely det ached, an endo-pouch was placed into the 12 mm port site and the specimen was removed through the endo-pouch. The appendiceal specimen will be sent to pathology for further review. I then copiously irrigated the right lower quadrant. Hemostasis was noted at both staple lines no other pathology was seen in this area. I then moved the camera to the suprapubic port to check our its port of entry. No iatrogenic injury or other pathology was noted in the upper abdomen. I then closed the 12 mm port site with a Sanket code and 0 Vicryl suture under direct visualization. At this point, the abdomen was desufflated and all ports were removed. All port sites were closed with 4 Monocryl subcuticular suture. Dermabond was placed on all wounds. The patient tolerated the procedure well and was extubated in the operating room postop. He will be sent to the recovery room in stable condition. Estimated Blood Loss 10 Drains No Packing No Pathology Yes Complications No immediate complications Condition Stable Disposition PACU [facility] Billing Surgery - Charge Forward: Surgery Billing
== END 2025-01-10 09:51 | disposition home or self-care (01) ==
PROVIDERS: PCP Family Medicine; Visit Provider Surgery
PROC: 0DTJ4ZZ Resection of Appendix, Percutaneous Endoscopic Approach (ICD-10-PCS; CPT 44970; principal; 2025-01-10 07:30)
DX: K38.8 Other specified diseases of appendix (principal); F17.220 Nicotine dependence, chewing tobacco, uncomplicated; Z79.84 Long term (current) use of oral hypoglycemic drugs
CPT/HCPCS: 44970; 82948; 88304; A9270; J0690; J1836; J1885; J2003; J2250; J2405; J2704; J2710; J3010; J7030; J7120

== ENCOUNTER 2025-07-11 14:08 | Outpatient (CLI) | payer OTHER, SELFPAY ==
--- NOTE | ~2025-07-11 | CT_ITS ---
EXAMINATION: CT abdomen pelvis wo/w con DATE: 07/11/2025 14:48 INDICATION: Hematuria TECHNIQUE: Computed tomography (CT) of the abdomen and pelvis was performed without intravenous contrast. CT of the abdomen and pelvis was then performed with a total of 130 mL Omnipaque-350 intravenous contrast using a double-bolus technique for simultaneous opacification of the renal parenchyma and renal collecting system. Automated exposure control and iterative reconstruction technique were employed. The dose-length product was 1024.97 mGy-cm. COMPARISON: None FINDINGS: Lung bases are clear. Heart size normal. Atherosclerotic coronary artery calcific lesion. No pericardial or pleural effusion. Liver, gallbladder, spleen, pancreas and bilateral adrenal glands are normal. Kidneys and ureters are normal with no urolithiasis, hydroureteronephrosis or perinephric/ureteral stranding. The renal collecting systems and ureters are opacified in their entirety on the delayed imaging with no evident filling defects or urothelial irregularities. Bladder is normal. Prostatomegaly measuring 4.9 x 3.9 cm. Postoperative change of prior appendectomy with suture line at the tip the cecum. Bowels are otherwise unremarkable. Small fat-containing umbilical hernia. No interval change in groundglass opacities in the central mesentery. No free intraperitoneal gas or fluid. No pathologically enlarged abdominal or pelvic lymphadenopathy. There is calcified atherosclerosis of the aorta and many of the other arteries. Moderate thoracic and mild lumbar spondylosis. IMPRESSION: 1. Normal kidneys and ureters with no urolithiasis or urothelial irregularities or other etiology for reported hematuria. 2. Prostatomegaly. Reviewed, dictated and finalized at location A. [employer]
== END 2025-07-11 14:09 | disposition home or self-care (01) ==
PROVIDERS: PCP Family Medicine; Visit Provider Physician Assistant
DX: R31.0 Gross hematuria (principal); N40.0 Benign prostatic hyperplasia without lower urinary tract symptoms
CPT/HCPCS: 74178; Q9967